=== PATIENT | male | born 1985 | race Caucasian/White ===

== ENCOUNTER 2016-05-06 13:33 | Emergency (ER) | payer OTHER ==
[~2016-05-06] VITALS: Ht 172.7 cm; Wt 89.0 kg
[~2016-05-06 13:33] MED LIST: MOTRIN600 MG PO; NORCO 7.5/321 TABLET PO
[2016-05-06] MEDS ORDERED: FLEXERIL10 MG PO (14:37)
[2016-05-06] MEDS ORDERED: MOBIC7.5 MG PO (14:37)
[2016-05-06 15:00] VITALS: BP 138/71
== END 2016-05-06 15:02 | disposition home or self-care (01) ==
LOC: EME 13:33
DX: S39.012A Strain of muscle, fascia and tendon of lower back, initial encounter (principal); V43.52XA Car driver injured in collision with other type car in traffic accident, initial encounter; Y92.488 Other paved roadways as the place of occurrence of the external cause; F17.200 Nicotine dependence, unspecified, uncomplicated
CPT/HCPCS: 99281; 99283

== ENCOUNTER 2016-07-12 07:31 | Emergency (ER) | payer OTHER ==
[~2016-07-12] VITALS: Ht 175.3 cm; Wt 58.9 kg
[~2016-07-12 07:31] MED LIST changes: +FLEXERIL10 MG PO; +MOBIC7.5 MG PO
[2016-07-12] MEDS ORDERED: NAPROSYN500 MG PO (08:12)
[2016-07-12] MEDS ORDERED: KEFLEX500 MG PO (08:12)
[2016-07-12 08:31] VITALS: BP 111/73
== END 2016-07-12 08:36 | disposition home or self-care (01) ==
LOC: EME 07:31
PROC: 0H91XZZ Drainage of Face Skin, External Approach (ICD-10-PCS; principal; 2016-07-12)
DX: L02.01 Cutaneous abscess of face (principal)
CPT/HCPCS: 87070; 87075; 87205; 99281; 99284

== ENCOUNTER 2017-01-24 21:21 | Emergency (ER) | payer OTHER ==
[~2017-01-24] VITALS: Ht 175.3 cm; Wt 57.4 kg
[~2017-01-24 21:21] MED LIST changes: +KEFLEX500 MG PO; +NAPROSYN500 MG PO
[2017-01-25 00:59] VITALS: BP 133/89
== END 2017-01-25 01:00 | disposition home or self-care (01) ==
LOC: EME 21:21
DX: S05.02XA Injury of conjunctiva and corneal abrasion without foreign body, left eye, initial encounter (principal); X58.XXXA Exposure to other specified factors, initial encounter; F17.200 Nicotine dependence, unspecified, uncomplicated
CPT/HCPCS: 99281; 99284

== ENCOUNTER 2017-05-25 17:42 | Emergency (ER) | payer SELFPAY ==
[~2017-05-25] VITALS: Ht 175.3 cm; Wt 58.7 kg
[2017-05-25 20:34] VITALS: BP 132/76
== END 2017-05-25 20:35 | disposition home or self-care (01) ==
LOC: EME 17:42
DX: M75.92 Shoulder lesion, unspecified, left shoulder (principal)
CPT/HCPCS: 73030; 99281; 99284

== ENCOUNTER 2017-06-08 17:16 | Emergency (ER) | payer SELFPAY ==
[~2017-06-08] VITALS: Ht 175.3 cm; Wt 58.1 kg
[2017-06-08] MEDS ORDERED: FLEXERIL10 MG PO (17:37)
[2017-06-08] MEDS ORDERED: LIDODERM 5% P1 PATCH TD (17:37)
[2017-06-08] MEDS ORDERED: MOTRIN800 MG PO (17:37)
[2017-06-08 17:49] VITALS: BP 141/80
== END 2017-06-08 17:55 | disposition home or self-care (01) ==
LOC: EME 17:16
DX: S39.012A Strain of muscle, fascia and tendon of lower back, initial encounter (principal); M62.838 Other muscle spasm; X50.0XXA Overexertion from strenuous movement or load, initial encounter; F17.200 Nicotine dependence, unspecified, uncomplicated
CPT/HCPCS: 99281; 99283